=== PATIENT | female | born 1995 | race Caucasian/White ===

== ENCOUNTER → 2021-04-16 14:41 | Outpatient (CLI) | payer BC, OTHER, SELFPAY ==
--- NOTE | ~2021-04-16 | US_ITS ---
EXAMINATION: US pelvic complete w TV DATE: 04/16/2021 15:10 INDICATION: Pelvic pain Comparison:No prior studies for comparison. TECHNIQUE: Multiple transabdominal and endovaginal sonographic images of the pelvis performed. FINDINGS: The uterus measures 7.6 x 3.8 x 4.1 cm. The endometrial complex measures 8 mm. The right ovary measures 4.9 x 3.2 x 4.5 cm and the left ovary measures 3 x 1.9 x 2.6 cm. There is a 4.4 cm right ovarian cyst. There are small follicles in each ovary. Normal doppler signal in both ova dimas. There is no free fluid in the pelvis. There are no abnormal masses seen on either side. IMPRESSION: 1. Right ovarian cyst measuring 4.4 cm. Reviewed, dictated and finalized at location A. [employer]
== END ==
PROVIDERS: Visit Provider Nurse Practitioner Obstetrics & Gynecology
DX: R10.2 Pelvic and perineal pain (principal); N83.201 Unspecified ovarian cyst, right side
CPT/HCPCS: 76830; 76856

== ENCOUNTER → 2021-06-22 15:01 | Outpatient (CLI) | payer BC, OTHER, SELFPAY ==
--- NOTE | ~2021-06-22 | US_ITS ---
EXAMINATION: US transvaginal DATE: 06/22/2021 15:31 INDICATION: Ovarian cyst. TECHNIQUE: Multiple transvaginal sonographic images of the pelvis were obtained. COMPARISON: Ultrasound 04/16/2021 FINDINGS: The uterus measures 5.3 x 4.2 x 4.9 cm. There is no free fluid in the pelvis. The endometrial complex measures 7 mm in thickness. The right ovary measures 4.4 x 3.3 x 3.0 cm. There is a 4.0 cm hemorrhag ic cyst in right ovary. The left ovary measures 1.8 x 2.5 x 1.9 cm. There is normal vascular flow in the ovaries. IMPRESSION: 1. 4.0 cm hemorrhagic cyst in right ovary. Reviewed, dictated and finalized at location A. SEALER
== END ==
PROVIDERS: Visit Provider Nurse Practitioner Obstetrics & Gynecology
DX: N83.201 Unspecified ovarian cyst, right side (principal)
CPT/HCPCS: 76830

== ENCOUNTER → 2021-09-11 11:49 | Outpatient (CLI) | payer OTHER, BC, SELFPAY ==
--- NOTE | ~2021-09-11 | US_ITS ---
EXAMINATION: US transvaginal EXAM DATE: 09/11/2021 12:22 INDICATION: Ovarian cyst . TECHNIQUE: Pelvic transvaginal sonogram was performed. There are multiple grayscale and Doppler imag es available for interpretation. Comparison is made to prior examination from 06/22/2021, 04/16/2021. FINDINGS: Uterus measures 7.1 x 4.5 x 5.0 cm, and is morphologically normal. Endometrial stripe brayan sures 13 mm, within normal limits. There is no free pelvic fluid. Right adnexa: The ovary measures 5.5 x 3.1 x 4.3 cm, with a hypoechoic cyst, containing proteinaceous material, measuring 4.7 x 2.6 x 4.1 cm. Uncertain whether or not this is the same lesion on prior th e prior 2 studies, if it is the same lesion appearance could also indicate endometrioma rather than h emorrhagic cyst. Ovarian vascular flow confirmed. Left adnexa: The ovary measures 3.7 x 3.4 x 4.9 cm, contains a cystic lesion with layering protein me asuring 4.1 x 2.2 x 3.3 cm. Ovarian vascular flow confirmed. IMPRESSION: 1. Right ovarian proteinaceous cystic lesion, could be the same seen on prior studies going back to and if so endometrioma would be in the differential diagnosis. 2. Interval development of proteinaceous left ovarian cystic lesion, same differential of hemorrhagic cyst and endometrioma. Reviewed, dictated and finalized at location A. IMPRESSION: 1. Right ovarian proteinaceous cystic lesion, could be the same seen on prior s tudies going back to April and if so endometrioma would be in the differenti al diagnosis. 2. Interval development of proteinaceous left ovarian cystic lesion, same diffe rential of hemorrhagic cyst and endometrioma.
== END ==
PROVIDERS: Visit Provider Nurse Practitioner Obstetrics & Gynecology
DX: N83.201 Unspecified ovarian cyst, right side (principal); N83.202 Unspecified ovarian cyst, left side
CPT/HCPCS: 76830